=== PATIENT | male | born 1970 | race Caucasian/White ===

== ENCOUNTER 2018-05-01 22:37 | Emergency (ER) | payer SELFPAY ==
[~2018-05-01] VITALS: Ht 172.7 cm; Wt 66.3 kg
[2018-05-02] MEDS ORDERED: PERCOCET 5/31 TABLET PO (01:14)
[2018-05-02] MEDS ORDERED: VALIUM5 MG PO (01:14)
[2018-05-02] MEDS ORDERED: MEDROL DOSEPAK4 MG PO (01:14)
[2018-05-02 01:45] VITALS: BP 136/82
== END 2018-05-02 01:45 | disposition home or self-care (01) ==
LOC: EME 22:37
DX: M62.838 Other muscle spasm (principal); M50.30 Other cervical disc degeneration, unspecified cervical region; F17.200 Nicotine dependence, unspecified, uncomplicated
CPT/HCPCS: 72125; 99281; 99284; J1885